=== PATIENT | male | born 1975 | race African-American/Black ===

== ENCOUNTER 2020-06-04 22:08 | Emergency (ER) | payer MEDICAID ==
[~2020-06-04] VITALS: Ht 188 cm; Wt 81.5 kg
[2020-06-04 23:09] VITALS: BP 143/81
== END 2020-06-04 23:29 | disposition home or self-care (01) ==
LOC: ER 22:08
DX: T16.1XXA Foreign body in right ear, initial encounter (principal); Z98.890 Other specified postprocedural states; X58.XXXA Exposure to other specified factors, initial encounter; Y93.89 Activity, other specified; Y92.018 Other place in single-family (private) house as the place of occurrence of the external cause
CPT/HCPCS: 69200; 93005; 99282; 99284

== ENCOUNTER 2025-10-08 15:19 | Emergency (ER) | payer MEDICAID, OTHER ==
[~2025-10-08] VITALS: Ht 188 cm; Wt 69.0 kg
[2025-10-08 16:19] VITALS: O2SAT 14
[2025-10-08 16:37] VITALS: BP 128/89; PULSE 50; RESP 59; TEMP 36.7; O2SAT 98
[2025-10-08] MEDS: ACETAMINOPHEN 325MG TABLET PO ONE (19:42)
[2025-10-08] MEDS ORDERED: IBUP-1455 MT (20:09)
[2025-10-09] MEDS ORDERED: BO1 TP (20:56)
== END 2025-10-08 20:27 | disposition home or self-care (01) ==
LOC: ER 15:19
DX: N50.811 Right testicular pain (principal); N50.812 Left testicular pain; M54.2 Cervicalgia
CPT/HCPCS: 76870; 93976; 99284

== ENCOUNTER 2025-10-09 19:20 | Emergency (ER) | payer OTHER ==
[~2025-10-09] VITALS: Ht 188 cm; Wt 64.7 kg
[~2025-10-09 19:20] MED LIST: IBUP-1455 MT
[2025-10-09 19:39] VITALS: O2SAT 99
[2025-10-09] MEDS ORDERED: BO1 TP (20:56)
[2025-10-09] MEDS: HYDRALAZINE HCL 25MG TABLET PO ONE (22:41)
[2025-10-09 23:22] VITALS: BP 141/71; PULSE 56; RESP 16; TEMP 36.8; O2SAT 99
== END 2025-10-09 23:35 | disposition home or self-care (01) ==
LOC: ER 19:26
DX: S00.412A Abrasion of left ear, initial encounter (principal); S30.812A Abrasion of penis, initial encounter; S30.813A Abrasion of scrotum and testes, initial encounter; Y04.0XXA Assault by unarmed brawl or fight, initial encounter; Y93.89 Activity, other specified; Y92.89 Other specified places as the place of occurrence of the external cause; Y99.8 Other external cause status
CPT/HCPCS: 99283

== ENCOUNTER 2025-10-13 16:19 | Emergency (ER) | payer MEDICAID, OTHER ==
[~2025-10-13] VITALS: Ht 190.5 cm; Wt 82.0 kg
[~2025-10-13 16:19] MED LIST changes: +BO1 TP
[2025-10-13 16:25] VITALS: O2SAT 100
[2025-10-13] MEDS: VISCOUS LIDOCAINE 2% 15 ML UDC MM STA (17:30)
[2025-10-13 20:52] VITALS: BP 142/83; PULSE 81; RESP 20; TEMP 36.7; O2SAT 97
== END 2025-10-13 20:55 | disposition home or self-care (01) ==
LOC: ER 16:19
DX: R07.0 Pain in throat (principal); R00.1 Bradycardia, unspecified; Z98.890 Other specified postprocedural states
CPT/HCPCS: 99282